=== PATIENT | female | born 1990 ===

== ENCOUNTER 2018-11-11 06:48 | Day surgery (SDC) | payer OTHER ==
[~2018-11-11] VITALS: Ht 154.9 cm; Wt 57.7 kg
[~2018-11-11 06:48] MED LIST: Mirena1 EACH VAG
--- NOTE | 2018-11-11 09:07 | NUR ---
11/11/18 0907 Jillian Sams SITTING UP IN RECLINER ICE PACK PLACED. SIPPING H20, DENIES PAIN AND DENIES NAUSEA. WARM BLANKETS GIVEN AND PT APPEARS COMFORTABLE, DOZING ON AND OFF WAITING FOR HER RIDE
== END 2018-11-11 09:34 | disposition home or self-care (01) ==
LOC: ORSCSDS 06:48
PROVIDERS: Surgery
PROC: 0JB70ZZ Excision of Back Subcutaneous Tissue and Fascia, Open Approach (ICD-10-PCS; principal; 2018-11-11 08:00)
DX: D17.1 Benign lipomatous neoplasm of skin and subcutaneous tissue of trunk (principal)
CPT/HCPCS: 88304; J0690; J2405; J3010; J7120

== ENCOUNTER → 2019-02-08 | Outpatient (CLI) | payer OTHER | LOC: LAB SHORT 13:58 → LAB 13:58 | DX: N39.0 Urinary tract infection, site not specified (principal) | CPT/HCPCS: 87086 ==

== ENCOUNTER → 2019-04-05 | Outpatient (CLI) | payer OTHER ==
[2019-04-11 15:06] LABS: CHLAMYDIA TRACHOMATIS, NAA Negative (Negative); NEISSERIA GONORRHOEAE, NAA Negative (Negative)
== END | disposition home or self-care (01) ==
LOC: LAB 14:39 → LAB SHORT 14:39
PROVIDERS: Obstetrics & Gynecology
DX: Z01.419 Encounter for gynecological examination (general) (routine) without abnormal findings (principal); Z11.3 Encounter for screening for infections with a predominantly sexual mode of transmission
CPT/HCPCS: 87491; 87591; 87624; 87625; G0123

== ENCOUNTER → 2019-05-01 | Outpatient (CLI) | payer OTHER | END | disposition home or self-care (01) | LOC: PLD 07:50 → LAB SHORT 07:50 | DX: R87.610 Atypical squamous cells of undetermined significance on cytologic smear of cervix (ASC-US) (principal) | CPT/HCPCS: 88305 ==

== ENCOUNTER → 2019-06-09 | Outpatient (CLI) | payer OTHER ==
[2019-06-13 01:06] LABS: CHLAMYDIA BY NAA Negative (Negative); GONOCOCCUS BY NAA Negative (Negative); TRICH VAG BY NAA Negative (Negative)
== END ==
LOC: LAB EV 18:38 → LAB SHORT 18:38
PROVIDERS: Nurse Practitioner
DX: R10.2 Pelvic and perineal pain (principal)
CPT/HCPCS: 87070; 87205; 87491; 87591; 87661

== ENCOUNTER → 2020-07-09 | Outpatient (CLI) | payer OTHER | END | disposition home or self-care (01) | LOC: LAB SHORT 10:41 → LAB 10:41 | PROVIDERS: Obstetrics & Gynecology | DX: Z01.419 Encounter for gynecological examination (general) (routine) without abnormal findings (principal) | CPT/HCPCS: 87625; G0123 ==

== ENCOUNTER → 2020-09-05 | Outpatient (CLI) | payer OTHER | END | disposition home or self-care (01) | LOC: PLD 13:30 → LAB SHORT 13:30 | DX: D06.1 Carcinoma in situ of exocervix (principal) | CPT/HCPCS: 88305 ==

== ENCOUNTER → 2020-10-29 | Outpatient (CLI) | payer OTHER | LOC: LAB SHORT 13:26 → PLD 13:26 | DX: D06.0 Carcinoma in situ of endocervix (principal) | CPT/HCPCS: 88305; 88342 ==

== ENCOUNTER → 2021-07-10 | Outpatient (CLI) | payer OTHER ==
[2021-07-11 20:10] LABS: HPV 16 Negative (Negative); HPV 18 Negative (Negative); HPV OTHER HR TYPES Negative (Negative)
== END ==
LOC: LAB 11:10 → LAB SHORT 11:10
PROVIDERS: Obstetrics & Gynecology
DX: Z01.419 Encounter for gynecological examination (general) (routine) without abnormal findings (principal); Z88.5 Allergy status to narcotic agent
CPT/HCPCS: 87624; G0123

== ENCOUNTER → 2022-06-12 | Outpatient (CLI) | payer OTHER ==
[2022-06-13 12:14] LABS: Candida species (DNA Probe) Negative (NEGATIVE); G. vaginalis (DNA Probe) Negative (NEGATIVE); T. vaginalis (DNA Probe) Negative (NEGATIVE)
== END | disposition home or self-care (01) ==
LOC: LAB 13:48 → LAB SHORT 13:48
PROVIDERS: Advanced Practice Midwife
DX: N76.0 Acute vaginitis (principal)
CPT/HCPCS: 87480; 87510; 87660